=== PATIENT | female | born 1935 | race Caucasian/White ===

== ENCOUNTER 2017-12-07 17:57 | Inpatient (IN) | END 2017-12-12 19:07 | disposition home or self-care (01) | DRG 812 ==

== ENCOUNTER 2018-01-13 12:00 | Inpatient (IN) | END 2018-01-18 16:55 | disposition home health service (06) | DRG 812 ==

== ENCOUNTER 2018-02-28 12:11 | Observation (INO) | END 2018-03-02 13:20 | disposition home or self-care (01) ==